=== PATIENT | female | born 1980 | race Caucasian/White ===

== ENCOUNTER 2024-01-06 02:15 | Emergency (ER) | payer MEDICAID ==
[~2024-01-06] VITALS: Ht 162.6 cm; Wt 77.1 kg
[2024-01-06 02:24] VITALS: BP 175/71; PULSE 65; RESP 16; TEMP 98; O2SAT 99
[2024-01-06 02:39] VITALS: BP 129/67; PULSE 66; RESP 16; TEMP 98; O2SAT 99
[2024-01-06] MEDS ORDERED: KETOROLAC 60 MG/2 ML VIAL IM ONE (02:45)
[2024-01-06] MEDS: KETOROLAC 60 MG/2 ML VIAL IM ONE (02:48)
[2024-01-06] MEDS ORDERED: IBUP-2213 PO (02:49)
== END 2024-01-06 02:56 | disposition home or self-care (01) ==
LOC: MED 02:15
DX: R07.89 Other chest pain (principal); M79.602 Pain in left arm; R11.0 Nausea; E11.9 Type 2 diabetes mellitus without complications; R03.0 Elevated blood-pressure reading, without diagnosis of hypertension; Z90.710 Acquired absence of both cervix and uterus; F17.210 Nicotine dependence, cigarettes, uncomplicated
CPT/HCPCS: 93005; 96372; 99283; J1885